=== PATIENT | male | born 1935 | race Caucasian/White ===

== ENCOUNTER → 2016-11-02 | Outpatient (CLI) | payer MEDICARE, OTHER ==
[~2016-11-02] MED LIST: AMIO200T PO; AMLO-145 PO; CLON0.5T4 PO; DOCU100T7 PO; SIMV-39 PO
--- NOTE | 2016-11-02 16:24 | RADRPT ---
PROCEDURE: XR Pelvis and Hips. CLINICAL INDICATION: Pelvic pain. Bilateral hip pain. TECHNIQUE: Five views. Frontal pelvis. Frontal and lateral right hip. Frontal and lateral left hip. COMPARISON: 03/14/2012. FINDINGS: There is a new large lytic lesion of the left ischial tuberosity measuring approximately 5.8 x 3.7 c m. There is associated pathologic fracture. There is no other lytic or blastic lesion. There is n o other fracture or dislocation. Vascular calcifications are present consistent with atherosclerosis. There are mild degenerative changes of the hips with osteophytes noted. The upper pelvis is not included on the images. Surgical clips are present in the scrotum. IMPRESSION: 1. A large lytic lesion of the left ischial tuberosity. This may indicate neoplasm or infection. Clinical correlation advised. Correlation with MRI advised. 2. No other change from 03/14/2012. Call report: A call report of the findings was made to Dr. Curry on 11/02/2016 at 1600 hours. RPTAT: QQ .Navi Cain MD, MD Date Time Electronically viewed and signed by .Navi Cain MD, on 11/02/2016 16:23 .R/
--- NOTE | 2016-11-02 16:33 | RADRPT ---
PROCEDURE: Right knee radiographs. CLINICAL INDICATION: Right knee pain. Postop. TECHNIQUE: Three views. Weight bearing. Frontal, lateral, and patellar view. COMPARISON: 11/19/2012. FINDINGS: There is no fracture or dislocation. Vascular calcifications are present consistent with atherosclerosis. 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 There is no lytic or blastic lesion. There is no joint effusion. IMPRESSION: 1. Satisfactory postoperative appearance of the right knee. 2. Atherosclerosis. RPTAT: QQ .Navi Cain MD, MD Date Time Electronically viewed and signed by .Navi Cain MD, MD on 11/02/2016 16:33 .R/
--- NOTE | 2016-11-02 16:33 | RADRPT ---
PROCEDURE: Left knee radiographs. CLINICAL INDICATION: Left knee pain. TECHNIQUE: Four views. Weight bearing. Frontal, lateral, oblique, and patellar view. COMPARISON: No prior studies are available for comparison. FINDINGS: There is no fracture or dislocation. Vascular calcifications are present consistent with atherosclerosis. There are degenerative changes with osteophytes arising from all 3 joint compartment margins. There is medial and lateral and patellofemoral joint compartment narrowing. There is no lytic or blastic lesion. There is no radiopaque foreign body. IMPRESSION: 1. 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 2. Atherosclerosis. RPTAT: QQ .Navi Cain MD, MD Date Time Electronically viewed and signed by .Navi Cain MD, MD on 11/02/2016 16:32 .R/
== END | disposition home or self-care (01) ==
LOC: HKI 13:30
PROVIDERS: ATTEND Orthopaedic Surgery
DX: M25.552 Pain in left hip (principal); D49.2 Neoplasm of unspecified behavior of bone, soft tissue, and skin; M17.12 Unilateral primary osteoarthritis, left knee; M25.562 Pain in left knee; Z96.651 Presence of right artificial knee joint
CPT/HCPCS: 73523; 73562; 73564; G0463